=== PATIENT | male | born 1955 | race American Indian/Alaskan Native ===

== ENCOUNTER 2018-08-14 10:10 | Outpatient (CLI) | payer MEDICARE ==
--- NOTE | 2018-08-14 14:18 | Cat Scan Report ---
CT ABDOMEN AND PELVIS WITHOUT CONTRAST: 08/14/18 10:10:00 CLINICAL:Microscopic hematuria. TECHNIQUE: Volumetric acquisition and 1.25 millimeter scan reconstructions from the lung bases through the pelvis. The study was performed without oral contrast. FINDINGS: Abdomen:No urinary calculus or mass. The right kidney measures 9.3 x 6.2 x 4.0 cm and the left kidney measures 11.2 x 6.1 x 5.3 cm. Moderate cortical irregularity of the right kidney and less cortical irregularity of the left kidney. The renal collecting systems and ureters are nondilated. The adrenal glands are normal. Normal liver, bile ducts and gallbladder. The gallbladder is partially contracted with no stones. Normal stomach, duodenum, pancreas and spleen. Regional increased density of the small bowel mesenteric fat with a classic "lynn mesentery" appearance. The involved area measures approximately 8.6 x 6.1 x 9.1 cm. It does not extend to the retroperitoneal fat. No mass or lymphadenopathy. Moderate calcification of the abdominal aorta and iliac arteries. No ascites and no pneumoperitoneum. Pelvis: The urinary bladder is small and contracted with a mildly thickened wall measuring 9 mm. No bladder mass or calculus is identified. The prostate is normal size with benign right-sided calcifications. The seminal vesicles are normal. No pelvic mass or lymphadenopathy. IMPRESSION: 1. Mild renal cortical scars, right greater than left and otherwise normal urinary tract. 2. No urinary calculus or mass. 3. 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 This is a nonspecific finding with a differential diagnosis that includes mesenteric lymphoma, inflammation and infiltrative neoplasia. However, there are no other signs to suggest tumor.
== END 2018-08-14 10:11 | disposition home or self-care (01) ==
LOC: CT 10:10
PROVIDERS: ATTEND Urology
DX: N28.89 Other specified disorders of kidney and ureter (principal); I10 Essential (primary) hypertension
CPT/HCPCS: 74176

== ENCOUNTER 2020-10-27 06:32 | Day surgery (SDC) | payer MEDICARE ==
[~2020-10-27 06:32] MED LIST: ceFAZolin/STERILE WATER 2 GM/20 ML SYRINGE IV NR
[2020-10-27] MEDS ORDERED: SODIUM CHLORIDE 0.9% 1000 ML 1,000 ML ONE (06:39)
--- NOTE | 2020-10-27 07:11 | Anesthesia Consultation ---
Anesthesia Consult and Med Hx Date of service: 10/27/20 - Airway Anesthetic Teeth Evaluation: Good ROM Head & Neck: Adequate Mental/Hyoid Distance: Adequate Mallampati Class: Class II Intubation Access Assessment: Good - Pulmonary Exam CTA: Yes - Cardiac Exam Cardiac Exam: RRR - Pre-Operative Health Status ASA Pre-Surgery Classification: ASA2 Proposed Anesthetic Plan: MAC Nerve Block: SCB - Pulmonary Hx Asthma: No Hx Respiratory Symptoms: No - Cardiovascular System Hx Hypertension: Yes Hx Heart Attack/AMI: No Hx Percutaneous Transluminal Coronary Angioplasty (PTCA): No Hx Cardia Arrhythmia: No Hx Pacemaker: No Hx Internal Defibrillator: No - Central Nervous System Hx Seizures: Yes (remote hx seizures; not currently on anti-seizure meds) CVA: No Hx Psychiatric Problems: No - Endocrine Hx Renal Disease: Yes (obsructive uropathy) Hx End Stage Renal Disease: Yes Hx Liver Disease: No Hx Insulin Dependent Diabetes: No Hx Non-Insulin Dependent Diabetes: No Hx Thyroid Disease: No - Hematic Hx Anemia: Yes Hx Sickle Cell Disease: No - Other Systems Hx Alcohol Use: No Hx Substance Use: No Hx Cancer: No Hx Obesity: Yes (BMI 32)
--- NOTE | 2020-10-27 07:12 | Anesthesia Day of Surgery ---
Anesthesia Day of Surgery - Day of Surgery Patient Examined: Yes Patient H&P Reviewed: Yes Patient is NPO: Yes
[2020-10-27] MEDS ORDERED: ONDANSETRON 4 MG/2 ML INJ IV PRN (07:17)
[2020-10-27] MEDS ORDERED: HYDROmorphone 1 MG/1 ML INJ IV PRN ×2 (07:17)
[2020-10-27 07:21] LABS: Hematocrit 36.6 % (35.5-45.6); Hemoglobin 11.9 gm/dl (11.8-15.2); Mean Corpuscular HGB Conc 32 % (32-34); Mean Corpuscular Volume 94 fl (84-94); Platelet Count 182 K/mm3 (140-440); Red Blood Count 3.89 M/mm3 (3.65-5.03)
[2020-10-27 07:22] LABS: Calcium 9.3 mg/dL (8.4-10.2)
[2020-10-27] MEDS ORDERED: SODIUM CHLORIDE 0.9% 1000 ML 1,000 ML IV SCH (07:30)
[2020-10-27] MEDS ORDERED: HEPARIN 10,000 UNITS/10 ML VIAL ONE (07:34)
[2020-10-27] MEDS ORDERED: SODIUM CHLORIDE 0.9% 500 ML 500 ML ONE (07:35)
[2020-10-27] MEDS ORDERED: rifAMPin 600 MG VIAL ONE (07:35)
[2020-10-27] MEDS ORDERED: SODIUM CHLORIDE 0.9% 250ML 250 ML ONE (07:35)
[2020-10-27] MEDS ORDERED: ONDANSETRON 4 MG/2 ML INJ ONE (07:37)
[2020-10-27] MEDS ORDERED: SODIUM CHLORIDE P/F VIAL 10 ML 10 ML ONE (07:37)
[2020-10-27] MEDS ORDERED: LIDOCAINE MPF (2%) 20 MG/1 ML VIAL 5 ML ONE (07:37)
[2020-10-27] MEDS ORDERED: propofoL 200 MG/20 ML VIAL IV ONE (07:38)
[2020-10-27] MEDS ORDERED: fentaNYL 100 MCG/2 ML INJ ONE (07:38)
[2020-10-27] MEDS ORDERED: BUPIVACAINE/PF (0.5%) 5 MG/1 ML 30 ML VIAL INFILTRATI ONE (07:40)
[2020-10-27] MEDS ORDERED: MIDAZOLAM 2 MG/2 ML INJ IV NR (08:00)
[2020-10-27] MEDS ORDERED: HEPARIN IR ONE (09:20)
[2020-10-27] MEDS ORDERED: SODIUM CHLORIDE 0.9% IR ONE (09:20)
[2020-10-27] MEDS ORDERED: HEPARIN 2,000 UNIT in SODIUM CHLORIDE 0.9% 500 ML 500 ML IR ONE (09:20)
[2020-10-27] MEDS ORDERED: SODIUM CHLORIDE 0.9% IRR 1,000 ML BOTTLE IR ONE (09:20)
[2020-10-27] MEDS ORDERED: rifAMPin 600 MG in SODIUM CHLORIDE 0.9% 50 ML IR ONE (09:30)
--- NOTE | 2020-10-27 10:24 | Short Stay Summary ---
Short Stay Documentation Date of service: 10/27/20 Narrative H&P: See H&P - History H&P: obtained from office - Allergies and Medications Current Medications: Allergies No Known Allergies Allergy (Verified 10/14/20 12:44) Home Medications Medication Instructions Recorded Confirmed Last Taken Type Potassium Chloride [K-Dur] 20 meq PO QDAY 10/14/20 10/27/20 10/27/20 05:00 History Rosuvastatin Calcium 20 mg PO DAILY 10/14/20 10/27/20 10/26/20 09:00 History Valsartan/Hydrochlorothiazide 1 each PO DAILY 10/14/20 10/27/20 10/27/20 05:00 History [Valsartan-Hctz 160-12.5 mg Tab] cloNIDine [Catapres] 0.1 mg PO QHS 10/14/20 10/27/20 10/27/20 05:00 History Flomax 0.4 mg PO DAILY 10/27/20 10/27/20 10/27/20 05:00 History Active Medications Cefazolin Sodium (Cefazolin/Sterile Water 2 Gm/20 Ml Syringe) 2 gm IV PREOP NR Stop: 10/27/20 20:00 Hydromorphone HCl (Hydromorphone 1 Mg/1 Ml Inj) 0.5 mg IV Q10MIN PRN PRN Reason: Pain , Severe (7-10) Stop: 10/27/20 23:00 Hydromorphone HCl (Hydromorphone 1 Mg/1 Ml Inj) 0.25 mg IV Q10MIN PRN PRN Reason: Pain, Moderate (4-6) Stop: 10/27/20 23:00 Sodium Chloride (Nacl 0.9% 1000 Ml) 1,000 mls @ 100 mls/hr IV DIRECT LILLIE Last Admin: 10/27/20 07:15 Dose: 100 mls/hr Documented by: Midazolam HCl (Midazolam 2 Mg/2 Ml Inj) 2 mg IV PREOP NR Stop: 10/27/20 23:59 Last Admin: 10/27/20 07:41 Dose: 2 mg Documented by: Ondansetron HCl (Ondansetron 4 Mg/2 Ml Inj) 4 mg IV ONCE PRN PRN Reason: Nausea And Vomiting Stop: 10/27/20 16:00 - Brief post op/procedure progress note Date of procedure: 10/27/20 Pre-op diagnosis: Chronic Renal Insufficiency Post-op diagnosis: same Procedure: Creation of Left Brachial Artery to Left Axillary Vein Arteriovenous Graft with 7 mm Bovine Artegraft Anesthesia: MAC, regional Surgeon: JOURDAN COREA Estimated blood loss: minimal Pathology: none Condition: stable - Disposition Condition at discharge: Good Disposition: DC-01 TO HOME OR SELFCARE Short Stay Discharge Plan Activity: other (No heavy lifting with left arm for 2 weeks.) Wound: open to air, keep clean and dry, other (Okay to shower and wash the left arm wounds with soap and water but do not soak in water for 2 weeks) Follow up with: JOURDAN COREA MD [Staff Physician] - 14 Days Prescriptions: HYDROcodone/APAP 5-325 [[facility] 5/325] 1 each PO Q4HR PRN #30 tablet PRN Reason: Pain
--- NOTE | 2020-10-27 10:26 | Operative Report ---
Operative Report Operative Report: Date of procedure: 10/27/2020 Pre-operative diagnosis: Chronic Renal Sufficiency Post-operative diagnosis: Same Procedure(s): 1. Creation of Left Brachial Artery to Axillary Vein AV Graft with 7 mm Bovine Graft Artergraft Surgeon: Bora Ortiz MD Admission Nurse Coordinator: None Anesthesia: Regional/MAC EBL: Minimal Counts: Correct Complications: None Condition: Stable Findings: Successful Creation of Left Arm AV Graft with Palpable Thrill and Palpable Radial Pulse at the Completion of the Case. Specimen: None Indication: The patient is a 65-year-old male with a history of chronic renal sufficiency who was not yet on hemodialysis however it is anticipated that he will require hemodialysis within the near future. He is in need of long-term dialysis access to avoid placement of a permacath. He is right-hand dominant and a vein mapping demonstrated he does not have adequate vein for the creation of an arteriovenous fistula so he was offered an arteriovenous graft. He was given the risk, benefits, and alternative procedures and consented to the procedure. Description of Procedure: Prior to being transported to the operating room the patient had a regional block of the left arm performed. After the block was performed the patient was transported to the operating room and adequately sedated. The patient's left arm was then prepped and draped in normal sterile fashion. A longitudinal incision was made on the medial aspect of the arm just proximal to the antecubital crease and carried down to the brachial artery using sharp dissection. The brachial artery was dissected out circumferentially both proximally and distally and controlled with vessel loops. A second incision was created in longitudinal fashion on the medial aspect of the arm just distal to the axillary crease and carried down to the axillary vein using sharp dissection. Axillary vein was dissected out circumferentially and controlled with a vessel loop. I then used a Keiko-Wick tunneler to tunnel from the brachial artery incision to the axillary vein incision and then pulled an 7 mm bovine through the tunnel. I infused with heparinized saline to ensure that it was not twisted or kinked. I put the brachial artery vessel loops on tension controlling the flow and then created an arteriotomy using an 11 blade and Moran scissors. I beveled the graft and created an end-to-side anastomosis using 6-0 Prolene running fashion. I clamped the graft just proximal to the anastomosis and then released the vessel loops restoring flow in the brachial artery. I placed quick clot in incision to achieve hemostasis. I cut the proximal end of the graft to the appropriate length and beveled the graft in preparation for a venous anastomosis. I controlled the axillary vein a Satinsky clamp and created a venotomy using an 11 blade and Moran scissors. I created an end to side anastomosis using a 6-0 Prolene in running fashion. Prior to completing the anastomosis I flushed the graft to ensure there was no thrombus and then completed the anastamosis. I released all clamps allowing flow into the AV graft which had an excellent thrill. I packed the wound with quick clot to achieve hemostasis. I closed both wounds in 2 layers using 3-0 Vicryl in running fashion in the deep dermal layer and 4-0 Monocryl in running fashion the subcuticular layer. I dressed both wounds with Dermabond. The patient tolerated the procedure well all sponge, needle, and instrument counts were correct. The patient was taken to recovery in stable condition.
[2020-10-27 12:04] VITALS: BP 105/66
--- NOTE | 2020-10-27 16:54 | Post Anesthesia Evaluation ---
- Post Anesthesia Evaluation Patient Participated: Yes Airway Patent: Yes Stable Respiratory Function: Yes Nausea/Vomiting: No Temp > 96.8F: Yes Pain Manageable: Yes Adequeate Hydration: Yes Anesthesia Complications: No Block Receding Appropriately: Yes Patient on Ventilator: No
== END 2020-10-27 06:33 | disposition home or self-care (01) ==
LOC: OR 06:32
PROVIDERS: ATTEND Surgery Vascular Surgery
DX: I12.0 Hypertensive chronic kidney disease with stage 5 chronic kidney disease or end stage renal disease (principal); N18.6 End stage renal disease; E78.00 Pure hypercholesterolemia, unspecified; E66.9 Obesity, unspecified; M19.90 Unspecified osteoarthritis, unspecified site; D64.9 Anemia, unspecified; Z98.890 Other specified postprocedural states; Z68.32 Body mass index [BMI] 32.0-32.9, adult
CPT/HCPCS: 36415; 36830; 64415; 80048; 85027; C1768; J0690; J1644; J2250; J2405; J2704; J3490; J7030; J7040; J7050; 64450; J3010; J7120